=== PATIENT | female | born 1965 | race Caucasian/White ===

== ENCOUNTER 2018-01-14 07:46 | Emergency (ER) | payer BC, OTHER ==
[~2018-01-14] VITALS: Ht 167.6 cm; Wt 52.2 kg
[2018-01-14 07:48] VITALS: BP 145/65; PULSE 67; RESP 16; TEMP 98.1; O2SAT 100
[2018-01-14] MEDS ORDERED: SODIUM CHLOR 0.9% 1000 ML INJ 1,000 ML IV SCH (08:03)
--- NOTE | 2018-01-14 08:08 | PD ---
HPI Chief Complaint: Allergic/Adverse Reaction Time Seen by Provider: 07:59 Travel History International Travel<30 days: No Contact w/Intl Traveler<30days: No Traveled to known affect area: No History of Present Illness HPI Patient had onset of red rash to face over the last 2 days, and today the swelling started to occur around her eyes, denies any shortness of breath, denies any wheezing, denies any trouble breathing. Unsure as to what may have precipitated this reaction. Denies using any new soaps or lotions or medications. Patient denies any alleviating or aggravating factors. Patient denies any factors associated such as fever, nausea, vomiting, diarrhea, chest pain, back pain, abdominal pain or URI symptoms No known drug allergy Past medical history significant for 2 C-sections, amblyopia surgery and tympanostomy tubes as a child PFS Past Medical History ?: Not Past Surgical History Section: Yes (X 2) Social History Alcohol Use: Yes (RARE) Tobacco Use: No Substance Use: No Allergies-Medications (Allergen,Severity, Reaction): Coded Allergies: No Known Allergies (Unverified , 01/14/18) Review of Systems General / Constitutional: No: Fever Eyes: No: Visual changes HENT: No: Headaches Cardiovascular: No: Chest Pain or Discomfort Respiratory: No: Shortness of Breath Gastrointestinal: No: Abdominal Pain Genitourinary: No: Dysuria Musculoskeletal: No: Pain Skin: Positive Rash, Positive Hives Neurologic: No: Weakness Psychiatric: No: Depression Endocrine: No: Polydipsia Hematologic/Lymphatic: No: Easy Bruising Physical Exam Narrative GENERAL: SKIN: Warm and dry. HEAD: Atraumatic. Normocephalic. EYES: Pupils equal and round. No scleral icterus. No injection or drainage. Infraorbital angioedema noted ENT: No nasal bleeding or discharge. Mucous membranes pink and moist. No uvular, tongue or lip edema NECK: Trachea midline. No JVD. No stridor CARDIOVASCULAR: Regular rate and rhythm. RESPIRATORY: No accessory muscle use. Clear to auscultation. Breath sounds equal bilaterally. No wheezing GASTROINTESTINAL: Abdomen soft, non-tender, nondistended. MUSCULOSKELETAL: Extremities without clubbing, cyanosis, or edema. No obvious deformities. NEUROLOGICAL: Awake and alert. No obvious cranial nerve deficits. Motor grossly within normal limits. Five out of 5 muscle strength in the arms and legs. Normal speech. PSYCHIATRIC: Appropriate mood and affect; insight and judgment normal. Data Data Last Documented VS Vital Signs Date Time Temp Pulse Resp B/P (MAP) Pulse Ox O2 Delivery O2 Flow Rate FiO2 01/14/18 08:19 68 119/61 01/14/18 07:56 18 01/14/18 07:48 98.1 100 Orders Orders Ecg Monitoring (01/14/18 08:03) Iv Access Insert/Monitor (01/14/18 08:03) Oximetry (01/14/18 08:03) Diphenhydramine Inj (Benadryl Inj) (01/14/18 08:15) Methylprednisolone So Succ Inj (Solumedr (01/14/18 08:15) Famotidine Inj (Pepcid Inj) (01/14/18 08:15) Sodium Chlor 0.9% 1000 Ml Inj (Ns 1000 M (01/14/18 08:03) Epinephrine (1:1000) Inj (Adrenalin (1:1 (01/14/18 08:15) MDM Medical Decision Making Medical Screen Exam Complete: Yes Emergency Medical Condition: Yes Medical Record Reviewed: Yes Interpretation(s) Pulse ox with excellent pleth wave, 98% on room air which is within normal limits Differential Diagnosis Angioedema versus anaphylaxis versus contact dermatitis versus allergic reaction Narrative Course After treatment patient is doing well and tolerating Po, wishes to be discharged at this time. Pulse ox is within normal limits. On reevaluation the continues to be no edema of lips uvula, tongue. No stridor and no wheezing noted either. Patient is stable for discharge Diagnosis Primary Impression: Angioedema type allergic reaction Patient Instructions: General Allergic Reaction (ED), General Instructions Scripts Epinephrine Inj (Epipen 2-Ethan Inj) 0.3 Mg/0.3 Ml Pfpen 0.3 MG IM ONCE Y for ALLERGIC REACTION, #1 PACK 0 Refills Prov: Jesu Davalos MD 01/14/18 Methylprednisolone Dosepak (Medrol Dosepak) 4 Mg Dspk 4 MG PO DIRECTED, #1 DSPK 0 Refills Per Pharmacist direction Prov: Jesu Davalos MD 01/14/18 Famotidine (Pepcid) 40 Mg Tab 40 MG PO DAILY for 7 Days, #7 TAB 0 Refills Prov: Jesu Davalos MD 01/14/18 Loratadine (Claritin) 10 Mg Cap 10 MG PO DAILY for Allergy Management for 7 Days, #7 CAP 0 Refills Prov: Jesu Davalos MD 01/14/18 Disposition: 01 DISCHARGE HOME Condition: Stable Jesu Davalos MD Jan 14, 2018 08:08
[2018-01-14] MEDS ORDERED: FAMOTIDINE 20 MG/2 ML VIAL IV PUSH ONE (08:15)
[2018-01-14] MEDS ORDERED: EPINEPHrine HCL (1:1000) 1 MG/ML VIAL IM ONE (08:15)
[2018-01-14] MEDS ORDERED: diphenhydrAMINE HCL 50 MG/ML VIAL IVP ONE (08:15)
[2018-01-14] MEDS ORDERED: methylPREDNISolone SOD SUCC 125 MG/2 ML VIAL IV PUSH ONE (08:15)
[2018-01-14 08:19] VITALS: BP 119/61; PULSE 68
[2018-01-14] MEDS ORDERED: CLAR10CA3 PO (09:44)
[2018-01-14] MEDS ORDERED: FAMO1TAB73 PO (09:44)
[2018-01-14] MEDS ORDERED: MEDR4PAK PO (09:44)
[2018-01-14] MEDS ORDERED: EPIP0.3I IM (09:44)
== END 2018-01-14 10:00 | disposition home or self-care (01) ==
LOC: NEPC 07:46
DX: T78.3XXA Angioneurotic edema, initial encounter (principal)
CPT/HCPCS: 96372; 96374; 96375; 99284; J0171; J1200; J2930; J7030